=== PATIENT | female | born 1985 | race Caucasian/White ===

== ENCOUNTER 2017-12-31 10:01 | Emergency (ER) | payer BC ==
[~2017-12-31] VITALS: Ht 172.7 cm; Wt 65.8 kg
== END 2017-12-31 13:22 | disposition home or self-care (01) ==
LOC: ER 10:01
DX: S60.012A Contusion of left thumb without damage to nail, initial encounter (principal); W22.8XXA Striking against or struck by other objects, initial encounter; Y93.89 Activity, other specified; Y92.89 Other specified places as the place of occurrence of the external cause; Y99.8 Other external cause status